=== PATIENT | female | born 1985 | race American Indian/Alaskan Native ===

== ENCOUNTER 2016-08-15 11:15 | Inpatient (IN) | payer OTHER ==
[2016-08-15] MEDS ORDERED: DUONEB *Not for PRN Use IH ONE ×2 (12:04→12:09)
[2016-08-15] MEDS ORDERED: MAGNESIUM SULFATE 2GM/50ML 2 GM/50 ML BAG IV ONE (12:36)
--- NOTE | 2016-08-15 13:05 | XRay Report ---
AP CHEST: HISTORY: Coughs There is poor inspiration with mild hypoventilatory changes/segmental atelectasis at the right lung base. The lungs are clear otherwise. No evidence for pneumonia, pleural effusion or pneumothorax. Normal heart and mediastinal structures. IMPRESSION: Grossly negative expiratory AP chest.
[2016-08-15 13:16] LABS: Basophils % (Auto) 0.5 % (0.0-1.8); Eosinophils % (Auto) 2.7 % (0.0-4.3); Hematocrit 36.6 % (30.3-42.9); Hemoglobin 11.9 gm/dl (10.1-14.3); Mean Corpuscular HGB Conc 33 % (30-34); Mean Corpuscular Hemoglobin 27 pg (28-32); Mean Corpuscular Volume 83 fl (79-97); Platelet Count 294 K/mm3 (140-440); Red Blood Count 4.42 M/mm3 (3.65-5.03); Red Cell Distribution Width 15.3 % (13.2-15.2); White Blood Count 10.2 K/mm3 (4.5-11.0)
[2016-08-15 13:21] LABS: Anion Gap 17 mmol/L; Blood Urea Nitrogen 6 mg/dL (7-17); Calcium 8.5 mg/dL (8.4-10.2); Carbon Dioxide 21 mmol/L (22-30); Chloride 100.4 mmol/L (98-107); Glucose 100 mg/dL (65-100); Sodium 136 mmol/L (137-145)
[2016-08-15 13:26] LABS: Potassium 2.7 mmol/L (3.6-5.0)
[2016-08-15] MEDS ORDERED: K-DUR PO ONE (13:50)
[2016-08-15] MEDS ORDERED: PROVENTIL IH ONE (14:17)
[2016-08-15] MEDS ORDERED: NACL ONE (14:28)
--- NOTE | 2016-08-15 15:16 | Emergency Department Report ---
HPI - General Chief Complaint: Adult Asthma Time Seen by Provider: 08/15/16 12:16 - HPI HPI: This is a 30-year-old Afro-[place]ian female presents to the emergency department with complaint of wheezing, shortness of breath, dry cough that has been going on since 6 AM. The patient has been trying to use her albuterol inhaler without any relief but also says that the inhaler had . She does have a previous history of asthma. She has never required admission or intubation secondary to her asthma. She complains of some chest discomfort only when she has deep respirations. She denies any fever, nausea, vomiting or diaphoresis. No recent travel or sick contacts at home. She denies tobacco or illicit drug use or abuse. She does not have a primary care physician. ED Past Medical Hx - Past Medical History Hx Asthma: Yes - Social History Smoking Status: Never Smoker - Medications Home Medications: Home Medications Medication Instructions Recorded Confirmed Last Taken Type Albuterol 2 puff INHALATION Q4H PRN 07/18/15 07/18/15 Unknown History Nitrofurantoin Glenn/M-Cryst 100 mg PO Q12HR #13 capsule 07/18/15 Unknown Rx [Macrobid CAP] Phenazopyridine [Pyridium] 100 mg PO TID PRN #5 tab 07/18/15 Unknown Rx ED Review of Systems ROS: Stated complaint: ZHANE Other details as noted in HPI Comment: All other systems reviewed and negative Constitutional: denies: chills, fever Eyes: denies: eye pain, eye discharge, vision change ENT: denies: ear pain, throat pain Respiratory: cough, shortness of breath, wheezing Cardiovascular: denies: palpitations, edema Gastrointestinal: denies: abdominal pain, nausea, diarrhea Genitourinary: denies: urgency, dysuria, discharge Musculoskeletal: denies: back pain, joint swelling, arthralgia Skin: denies: rash, lesions Neurological: denies: headache, weakness, paresthesias Physical Exam - Physical Exam Vital Signs: Vital Signs 08/15/16 08/15/16 08/15/16 11:57 12:00 12:10 Pulse Rate [ Anterior Bilateral Throughout] Respiratory 23 Rate Respiratory Rate [Anterior Bilateral Throughout] Blood Pressure 130/74 130/74 O2 Sat by Pulse 96 96 98 Oximetry 08/15/16 08/15/16 08/15/16 12:12 12:20 12:30 Pulse Rate [ 104 H Anterior Bilateral Throughout] Respiratory Rate Respiratory 24 Rate [Anterior Bilateral Throughout] Blood Pressure 132/79 139/78 O2 Sat by Pulse 96 98 Oximetry 08/15/16 08/15/16 08/15/16 12:40 12:50 13:00 Pulse Rate [ 112 H Anterior Bilateral Throughout] Respiratory Rate Respiratory 24 Rate [Anterior Bilateral Throughout] Blood Pressure 139/78 147/78 147/78 O2 Sat by Pulse 98 97 99 Oximetry 08/15/16 08/15/16 08/15/16 13:10 13:20 13:30 Pulse Rate [ Anterior Bilateral Throughout] Respiratory Rate Respiratory Rate [Anterior Bilateral Throughout] Blood Pressure 148/68 168/92 168/92 O2 Sat by Pulse 97 97 97 Oximetry 08/15/16 14:32 Pulse Rate [ 112 H Anterior Bilateral Throughout] Respiratory Rate Respiratory 22 Rate [Anterior Bilateral Throughout] Blood Pressure O2 Sat by Pulse Oximetry Physical Exam: GENERAL: The patient is well-developed well-nourished. HEENT: Normocephalic. Atraumatic. Extraocular motions are intact. Patient has moist mucous membranes. Pupils equal reactive to light bilaterally. NECK: Supple. Trachea is midline. CHEST/LUNGS: Moderate to severe bronchospasm/wheezing throughout the chest. There is tachypnea and some supraclavicular accessory muscle use. No conversational dyspnea. There is mild respiratory distress noted. HEART/CARDIOVASCULAR: Regular. There is mild to moderate tachycardia. There is no gallop rub or murmur. ABDOMEN: Abdomen is soft, nontender. Patient has normal bowel sounds. There is no abdominal distention. Obese habitus. SKIN: Skin is warm and dry. NEURO: The patient is awake, alert, and oriented. The patient is cooperative. The patient has no focal neurologic deficits. The patient has normal speech. MUSCULOSKELETAL: There is no tenderness or deformity. There is no limitation range of motion. There is no evidence of acute injury. ED Course Vital Signs 08/15/16 08/15/16 08/15/16 11:57 12:00 12:10 Pulse Rate [ Anterior Bilateral Throughout] Respiratory 23 Rate Respiratory Rate [Anterior Bilateral Throughout] Blood Pressure 130/74 130/74 O2 Sat by Pulse 96 96 98 Oximetry 08/15/16 08/15/16 08/15/16 12:12 12:20 12:30 Pulse Rate [ 104 H Anterior Bilateral Throughout] Respiratory Rate Respiratory 24 Rate [Anterior Bilateral Throughout] Blood Pressure 132/79 139/78 O2 Sat by Pulse 96 98 Oximetry 08/15/16 08/15/16 08/15/16 12:40 12:50 13:00 Pulse Rate [ 112 H Anterior Bilateral Throughout] Respiratory Rate Respiratory 24 Rate [Anterior Bilateral Throughout] Blood Pressure 139/78 147/78 147/78 O2 Sat by Pulse 98 97 99 Oximetry 08/15/16 08/15/16 08/15/16 13:10 13:20 13:30 Pulse Rate [ Anterior Bilateral Throughout] Respiratory Rate Respiratory Rate [Anterior Bilateral Throughout] Blood Pressure 148/68 168/92 168/92 O2 Sat by Pulse 97 97 97 Oximetry 08/15/16 14:32 Pulse Rate [ 112 H Anterior Bilateral Throughout] Respiratory Rate Respiratory 22 Rate [Anterior Bilateral Throughout] Blood Pressure O2 Sat by Pulse Oximetry ED Medical Decision Making - Lab Data Result diagrams: 08/15/16 12:58 08/15/16 12:58 - EKG Data -: EKG Interpreted by Me EKG shows normal: sinus rhythm, axis, intervals, QRS complexes, ST-T waves Rate: normal - EKG Data When compared to previous EKG there are: previous EKG unavailable Interpretation: normal EKG - Radiology Data Radiology results: report reviewed, image reviewed interpreted by me: Chest x-ray did not show any acute process. Heart is normal shape and size. No effusions. No pneumothorax. No signs of pneumonia seen. CT angiography of the chest does not show any pulmonary embolism, dissection or any acute process. - Medical Decision Making 30-year-old female woke up this morning with shortness of breath, wheezing and cough. She has a history of asthma. On examination she has moderate to severe bronchospasm and wheezing. She has some tachypnea and mild accessory muscle use and mild respiratory distress at first. After the first round of breathing treatments the patient will longer appears in distress but still has significant bronchospasm. Labs show some hypokalemia with potassium of 2.7 but this may be due to the albuterol that she is gotten from her inhaler and nebulized treatments. She also has a slightly elevated and equivocal d-dimer so a CT angiography of the chest was done that did not show any pulmonary embolus, dissection or any acute process. The patient has received a total of 12.5 mg of albuterol, 1 mg of Atrovent, 125 mg of Solu-Medrol, 2 g of magnesium and she still continues to have significant bronchospasm. For this reason the patient will be admitted to the hospital and will be presented to the hospitalist, Dr Ross. - Differential Diagnosis Asthma, COPD, Pneumonia, PE Critical Care Time: No Critical care attestation.: If time is entered above; I have spent that time in minutes in the direct care of this critically ill patient, excluding procedure time. ED Disposition Clinical Impression: Bronchospasm, Asthma exacerbation Hypertension Qualifiers: Hypertension type: essential hypertension Qualified Code(s): I10 - Essential ( primary) hypertension Dyspnea Qualifiers: Dyspnea type: unspecified Qualified Code(s): R06.00 - Dyspnea, unspecified Disposition: 09 OP ADMIT IP TO THIS HOSP Is pt being admited?: Yes Condition: Stable Instructions: Hypertension (ED) Referrals: PRIMARY CARE, [Primary Care Provider] - 3-5 Days Time of Disposition: 15:36
--- NOTE | 2016-08-15 15:24 | Cat Scan Report ---
CTA CHEST: History: Shortness of breath. Technique: Helical CT following IV contrast. Pulmonary embolus protocol. Sagittal and coronal reformatted images. Rotational MIP images. Findings: Contrast bolus is satisfactory. No pulmonary embolus is identified. Segmental atelectasis is noted in the lateral right middle lobe and anterior left lower lung. Otherwise, the lungs are clear. No interstitial or airspace disease is appreciated. No pleural effusion or pneumothorax. The thyroid gland, tracheobronchial tree, esophagus, heart, pericardium, mediastinal vessels, and bony thorax are unremarkable. Impression: No evidence for pulmonary embolus. Mild atelectatic changes as described.
--- NOTE | 2016-08-15 15:46 | Admit Criteria Form ---
Admission Criteria Documentation: ASTHMA Clinical Indications for Admission to Inpatient Care (Place 'X' for any and all applicable criteria): Admission is indicated for ANY ONE of the following (1)(2)(3)(4)(5): [ ]I. Absent or markedly diminished breath sounds (silent chest) [ ]II. Oxygen saturation < 92% [ ]III. PaCO2 = / > 42 mm Hg (5.6 kPa) [ ]IV. Peak expiratory flow rate < 40% of predicted or personal best after treatment. [ ]V. Peak expiratory flow rate < 33% of predicted or personal before after treatment [ ]. Change in mental status [ ]VII. Ventilatory support required [ ]VIII. PaO2 < 60 mm Hg (8.0 kPa) [ ]IX. Cyanosis [ ]X. Cardiac dysrhythmia (e.g., bradycardia) [ ]XI. Hemodynamic instability [ ]XII. Radiographic evidence of complication requiring inpatient treatment (e.g., pneumonia, pneumothorax) [X ]XIII. Inpatient admission required rather than observation care (also use Asthma: Observation Care guideline as appropriate) because of ANY ONE of the following: [X ]a) Respiratory finding that is severe or persistent (eg, dyspnea, tachypnea, accessory muscle use) [ ]b) Airflow measurements less than 60% of predicted or personal best that persist (e.g., over 24 hours) or worsen despite treatments [ ]c) Supplemental oxygen or respiratory treatments for over 24 hours that are performable only in acute inpatient setting [X ]d) Other condition, treatment or monitoring requiring inpatient admission. Extended stay beyond goal length of stay may be needed for (26)(27)(28): [ ]a) Severe respiratory failure (23) (29) (30) [ ]b) Secondary causes and complications (25) [ ]c) Status asthmaticus [ ]d) Chronic obstructive asthma [ ]e) Older patients (29) [ ]f) Slow resolution [ ]g) Clinically significant exacerbation of comorbidities (eg, lissette. heart failure, atrial fibrillation) The original [facility] content created by [employer] has been revised. The portions of the content which have been revised are identified through the use of italic text or in bold, and [facility] has neither reviewed nor approved the modified material. All other unmodified content is copyright [facility] Please see references footnoted in the original [facility] edition 2016 Admission Criteria Met: Yes
[2016-08-15] MEDS ORDERED: DULCOLAX PR PRN (15:53)
[2016-08-15] MEDS ORDERED: MILK OF MAGNESIA PO PRN (15:53)
[2016-08-15] MEDS ORDERED: DUONEB *Not for PRN Use IH (15:53)
[2016-08-15] MEDS ORDERED: TYLENOL PO PRN (15:53)
[2016-08-15] MEDS ORDERED: ZOFRAN IV PRN (15:53)
[2016-08-15] MEDS: ZITHROMAX 500 MG in NACL 0.9% 250ML 250 ML IV SCH (17:13)
[2016-08-15] MEDS: PROVENTIL IH PRN (18:56)
[2016-08-16] MEDS: PROVENTIL IH PRN (02:02)
--- NOTE | 2016-08-16 06:34 | History and Physical Report ---
History of Present Illness Date of admission: 08/15/16 15:53 Chief complaint: I cant breathe History of present illness: 30 YO Female with Obesity, Asthma presents to ED for evaluation. Pt states that she has experienced wheezing, shortness of breath, and dry cough for the past day with worsening symptoms over thepast 3 hours. PT states that she has used her mothers albuterol inhaler without relief. Pt ran out of medication 1 week ago. Pt acknowledges exposure to asthma triggers. Pt denies any fever, nausea, vomiting or diaphoresis,CP, Palpitations, No recent travel or sick contacts at home. She denies tobacco or illicit drug use or abuse. She does not have a primary care physician. Past History Past Medical History: other (obeisty, asthma) Past Surgical History: No surgical history, Other (reviewed) Social history: single, lives with family. denies: smoking, alcohol abuse, prescription drug abuse Family history: hypertension Medications and Allergies Allergies Allergy/AdvReac Type Severity Reaction Status Date / Time No Known Allergies Allergy Verified 07/18/15 04:03 Home Medications Medication Instructions Recorded Confirmed Last Taken Type Albuterol 2 puff INHALATION Q4H PRN 07/18/15 08/15/16 Unknown History Active Meds: Active Medications Acetaminophen (Tylenol) 650 mg PO Q4H PRN PRN Reason: Pain MILD(1-3)/Fever >100.5/VILLA Last Admin: 08/15/16 21:55 Dose: 650 mg Albuterol (Proventil) 2.5 mg IH Q4HRT PRN PRN Reason: Shortness Of Breath Last Admin: 08/16/16 02:02 Dose: 2.5 mg Albuterol (Proventil) 2.5 mg IH Q6HRT [facility] Bisacodyl (Dulcolax) 10 mg MD QDAY PRN PRN Reason: Constipation unrelieved by MOM Azithromycin 500 mg/ Sodium (Chloride) 250 mls @ 250 mls/hr IV Q24HR [facility] Last Admin: 08/15/16 17:13 Dose: 250 mls/hr Magnesium Hydroxide (Milk Of Magnesia) 30 ml PO Q4H PRN PRN Reason: Constipation Methylprednisolone Sodium Succinate (Solu-Medrol) 40 mg IV Q8H [facility] Last Admin: 08/16/16 02:18 Dose: 40 mg Ondansetron HCl (Zofran) 4 mg IV Q8H PRN PRN Reason: N/V unrelieved by Reglan Pneumococcal Polyvalent Vaccine (Pneumovax 23) 0.5 ml IM .ONCE ONE Stop: 08/16/16 12:01 Review of Systems All systems: negative Respiratory: shortness of breath Exam - Constitutional Vitals: Temp Pulse Resp BP Pulse Ox 98.6 F 110 H 30 H 136/83 95 08/16/16 00:00 08/16/16 02:46 08/16/16 02:46 08/16/16 00:00 08/16/16 02:46 General appearance: Present: mild distress, obese - EENT Eyes: Present: PERRL ENT: hearing intact, clear oral mucosa - Neck Neck: Present: supple, normal ROM - Respiratory Respiratory effort: labored Respiratory: bilateral: diminished, wheezing - Cardiovascular Heart Sounds: Present: S1 & S2. Absent: rub, click - Extremities Extremities: pulses symmetrical, No edema Peripheral Pulses: within normal limits - Abdominal General gastrointestinal: Present: soft, non-tender, non-distended, normal bowel sounds Female genitourinary: Present: normal - Integumentary Integumentary: Present: clear, warm, dry - Musculoskeletal Musculoskeletal: gait normal, strength equal bilaterally - Psychiatric Psychiatric: appropriate mood/affect, intact judgment & insight - Neurologic Neurologic: CNII-XII intact, moves all extremities Results - Labs CBC & Chem 7: 08/15/16 12:58 08/15/16 12:58 Assessment and Plan - Patient Problems (1) Acute respiratory failure with hypoxemia Current Visit: Yes Status: Acute Plan to address problem: Supplemental oxygen, nebulizer therapy, pulmonary toilet, NIPPV as clinically indicated. (2) Status asthmaticus Current Visit: Yes Status: Acute Qualifiers: Asthma severity: A Plan to address problem: IV steroids, ABX, nebulizer therapy, supportive care, education regarding avoidance of asthma triggers. (3) Obesity Current Visit: Yes Status: Acute Qualifiers: Obesity type: O Obesity severity: O Plan to address problem: Pt counseled regarding balanced diet, increased physical activity (4) DVT prophylaxis Current Visit: Yes Status: Acute
[2016-08-16] MEDS: PROVENTIL IH SCH ×3 (08:34→19:59)
--- NOTE | 2016-08-16 09:58 | Progress Note ---
Assessment and Plan Assessment and plan: 30 YO Female with Obesity, Asthma presents to ED for evaluation. Pt states that she has experienced wheezing, shortness of breath, and dry cough for a few days , she has moderate persistent asthma, has daily symptoms is not on any control medications because she has no insurance or PCP, denies any ER visits in the past year, this is her first time coming to hospital. PT states that she has used her mothers albuterol inhaler and her mom's nebulizer without relief. Her mom's meds ran out last week Acute respiratory failure with hypoxemia Supplemental oxygen, nebulizer therapy, pulmonary toilet, NIPPV as clinically indicated. Status asthmaticus, on Moderate severe asthma IV steroids, ABX, nebulizer therapy, supportive care, education regarding avoidance of asthma triggers. Hypokalemia repleted will recheck today , also check mg level Obesity Pt counseled regarding lifestyle modification DVT prophylaxis Current Visit: Yes Status: Acute History Interval history: continues to have sob and wheezing Hospitalist Physical - Physical exam Narrative exam: General: Patient appears well in no distress HEENT: MMM, EOMI cardiac: S1-S2 heard lungs: wheezing, decreased air entry abdomen: soft, nontender, nondistended bowel sounds positive extremities: no edema clubbing or cyanosis Skin: no rash or lesion Neuro: no focal deficit Psych: appropriate behavior and mood, cognition intact - Constitutional Vitals: Temp Pulse Resp BP Pulse Ox 97.9 F 107 H 20 141/89 99 08/16/16 07:00 08/16/16 08:45 08/16/16 08:45 08/16/16 07:00 08/16/16 08:34 General appearance: Present: mild distress, obese Results - Labs CBC & Chem 7: 08/15/16 12:58 08/16/16 10:39 Labs: Laboratory Last Values WBC 10.2 K/mm3 (4.5-11.0) 08/15/16 12:58 RBC 4.42 M/mm3 (3.65-5.03) 08/15/16 12:58 Hgb 11.9 gm/dl (10.1-14.3) 08/15/16 12:58 Hct 36.6 % (30.3-42.9) 08/15/16 12:58 MCV 83 fl (79-97) 08/15/16 12:58 MCH 27 pg (28-32) L 08/15/16 12:58 MCHC 33 % (30-34) 08/15/16 12:58 RDW 15.3 % (13.2-15.2) H 08/15/16 12:58 Plt Count 294 K/mm3 (140-440) 08/15/16 12:58 Lymph % (Auto) 7.1 % (13.4-35.0) L 08/15/16 12:58 [place] % (Auto) 3.6 % (0.0-7.3) 08/15/16 12:58 Eos % (Auto) 2.7 % (0.0-4.3) 08/15/16 12:58 Baso % (Auto) 0.5 % (0.0-1.8) 08/15/16 12:58 Lymph # 0.7 K/mm3 (1.2-5.4) L 08/15/16 12:58 [place] # 0.4 K/mm3 (0.0-0.8) 08/15/16 12:58 Eos # 0.3 K/mm3 (0.0-0.4) 08/15/16 12:58 Baso # 0.0 K/mm3 (0.0-0.1) 08/15/16 12:58 Seg Neutrophils % 86.1 % (40.0-70.0) H 08/15/16 12:58 Seg Neutrophils # 8.8 K/mm3 (1.8-7.7) H 08/15/16 12:58 D-Dimer 310.93 ng/mlDDU (0-234) H 08/15/16 13:20 Sodium 136 mmol/L (137-145) L 08/15/16 12:58 Potassium 2.7 mmol/L (3.6-5.0) L* 08/15/16 12:58 Chloride 100.4 mmol/L (98-107) 08/15/16 12:58 Carbon Dioxide 21 mmol/L (22-30) L 08/15/16 12:58 Anion Gap 17 mmol/L 08/15/16 12:58 BUN 6 mg/dL (7-17) L 08/15/16 12:58 Creatinine 0.6 mg/dL (0.7-1.2) L 08/15/16 12:58 Estimated GFR > 60 ml/min 08/15/16 12:58 BUN/Creatinine Ratio 10.00 % 08/15/16 12:58 Glucose 100 mg/dL (65-100) 08/15/16 12:58 Calcium 8.5 mg/dL (8.4-10.2) 08/15/16 12:58 Troponin T < 0.010 ng/mL (0.00-0.029) 08/15/16 12:58 HCG, Qual Negative (Negative) 08/15/16 13:20
[2016-08-16 11:14] LABS: Anion Gap 21 mmol/L; Blood Urea Nitrogen 9 mg/dL (7-17); Calcium 9.2 mg/dL (8.4-10.2); Carbon Dioxide 16 mmol/L (22-30); Chloride 103.8 mmol/L (98-107); Glucose 154 mg/dL (65-100); Potassium 3.8 mmol/L (3.6-5.0); Sodium 137 mmol/L (137-145)
[2016-08-16] MEDS: ZITHROMAX 500 MG in NACL 0.9% 250ML 250 ML IV SCH (11:18)
[2016-08-16] MEDS ORDERED: PNEUMOVAX 23 IM ONE (12:00)
[2016-08-17] MEDS: PROVENTIL IH SCH ×2 (03:06→07:53)
[2016-08-17] MEDS: ZITHROMAX 500 MG in NACL 0.9% 250ML 250 ML IV SCH (10:15)
[2016-08-17] MEDS: PROVENTIL IH PRN ×2 (10:42→13:42)
[2016-08-17 10:52] VITALS: BP 117/80
--- NOTE | 2016-08-17 10:54 | Discharge Summary ---
Providers - Providers Date of Admission: 08/15/16 15:53 Attending physician: JOSE A CAMPO MD Primary care physician: TRUCK FARMER Hospitalization Condition: Stable Hospital course: 30 YO Female with Obesity, Asthma presents to ED for evaluation. Pt states that she has experienced wheezing, shortness of breath, and dry cough for a few days , she has moderate persistent asthma, has daily symptoms is not on any control medications because she has no insurance or PCP, denies any ER visits in the past year, this is her first time coming to hospital. PT states that she has used her mothers albuterol inhaler and her mom's nebulizer without relief. Her mom's meds ran out last week. She was treated with supplemental oxygen, aggressive nebulizer therapy, IV steroids and antibiotics. She clinically improved, she was counseled on the importance of having maintenance medications for asthma as uncontrolled asthma can be deadly. She verbalized understanding she was given resources for obtaining more affordable medications and free clinics, and Poor adherence to treatment and this due to financial limitations and lack of medical insurance. She was started on control medication, and she is being dc on oral steroid taper upon discharge. She was found to have low potassium and it was repleted. Discharge diagnoses Acute respiratory failure with hypoxemia Status asthmaticus, on Moderate persistent asthma Hypokalemia Obesity Disposition: DC-01 TO HOME OR SELFCARE Time spent for discharge: 33 minutes Core Measure Documentation - Palliative Care Palliative Care/ Comfort Measures: Not Applicable - Core Measures Any of the following diagnoses?: none Exam - Constitutional Vitals: Temp Pulse Resp BP Pulse Ox 97.4 F L 78 16 140/76 97 08/16/16 23:50 08/17/16 08:00 08/17/16 08:00 08/16/16 23:50 08/16/16 23:50 General appearance: Present: no acute distress, well-nourished - EENT Eyes: Present: PERRL ENT: hearing intact, clear oral mucosa - Neck Neck: Present: supple, normal ROM - Respiratory Respiratory effort: normal Respiratory: bilateral: CTA - Cardiovascular Heart Sounds: Present: S1 & S2. Absent: rub, click - Extremities Extremities: pulses symmetrical, No edema Peripheral Pulses: within normal limits - Abdominal General gastrointestinal: Present: soft, non-tender, non-distended, normal bowel sounds Female genitourinary: Present: normal - Integumentary Integumentary: Present: clear, warm, dry - Musculoskeletal Musculoskeletal: gait normal, strength equal bilaterally - Psychiatric Psychiatric: appropriate mood/affect, intact judgment & insight - Neurologic Neurologic: CNII-XII intact, moves all extremities Plan Follow up with: PRIMARY CARE, [Primary Care Provider] - 3-5 Days [facility] [Outside] - 7 Days Forms: Work/School Release Form Prescriptions: Albuterol 2 puff INHALATION Q4H PRN #1 PRN Reason: Dyspnea Albuterol Sulfate [Albuterol 0.63% NEBS] 0.63 mg IH Q6H PRN #120 neb PRN Reason: Shortness Of Breath Azithromycin [Zithromax Z-NEYMAR] 0 mg PO DAILY #1 pack Mometasone/Formoterol [Dulera 100 Mcg/5 Mcg Inhaler] 2 puff IH BID #1 hfa.aer.ad Prednisone [predniSONE 5 mg (6-Day Pack, 21 Tabs)] 5 mg PO .TAPER #1 tab.ds.pk
[2016-08-17] MEDS ORDERED: PROVENTIL IH SCH ×3 (12:00→16:00)
== END 2016-08-17 15:30 | disposition home or self-care (01) | DRG 189 ==
LOC: ED 11:15 → 3A 15:53
PROVIDERS: ADMIT Internal Medicine; ATTEND Internal Medicine
PROC: 5A09357 Assistance with Respiratory Ventilation, Less than 24 Consecutive Hours, Continuous Positive Airway Pressure (ICD-10-PCS; principal; 2016-08-16)
DX: J96.01 Acute respiratory failure with hypoxia (principal); J45.42 Moderate persistent asthma with status asthmaticus; Z68.42 Body mass index [BMI] 45.0-49.9, adult; E87.6 Hypokalemia; I10 Essential (primary) hypertension; E66.9 Obesity, unspecified; Z71.3 Dietary counseling and surveillance; Z71.89 Other specified counseling; Z82.49 Family history of ischemic heart disease and other diseases of the circulatory system
CPT/HCPCS: 36415; 71010; 71275; 80048; 83735; 84484; 84703; 85025; 85379; 90732; 94640; 94644; 94660; 94760; 96374; 96375; 99285; J0456; J2405; J2920; J2930; J3475; J7050; Q9967